=== PATIENT | female | born 1960 | race Caucasian/White ===

== ENCOUNTER → 2020-03-16 | Outpatient (CLI) | payer MEDICARE, OTHER | LOC: HEART 5 10:40 | DX: J44.9 Chronic obstructive pulmonary disease, unspecified (principal); R94.2 Abnormal results of pulmonary function studies | CPT/HCPCS: 94010; 94729 ==

== ENCOUNTER → 2020-03-16 | Outpatient (CLI) | payer MEDICARE, OTHER | LOC: KOH-I 03-10 08:00 → CT 03-15 08:00 | DX: Z12.2 Encounter for screening for malignant neoplasm of respiratory organs (principal); F17.210 Nicotine dependence, cigarettes, uncomplicated; R09.02 Hypoxemia; R91.8 Other nonspecific abnormal finding of lung field; E04.9 Nontoxic goiter, unspecified | CPT/HCPCS: 36600; 71271; 82803 ==